=== PATIENT | female | born 1970 | race Caucasian/White ===

== ENCOUNTER 2019-04-12 12:31 | Emergency (ER) | payer SELFPAY ==
[~2019-04-12] VITALS: Ht 160 cm; Wt 79.4 kg
[~2019-04-12 12:31] MED LIST: CYCL10TA7 PO; NAPR-985 PO; TRAM50TA2 PO
[2019-04-12 12:41] VITALS: Ht 160 cm; Wt 79.4 kg
[2019-04-12] MEDS ORDERED: SOD CHLORIDE 0.9% 1,000 ML IV STA (13:26)
[2019-04-12] MEDS ORDERED: ONDANSETRON 4 MG INJ IV STA (13:26)
[2019-04-12] MEDS ORDERED: morphine 4 MG/ML VIAL IV STA (13:26)
[2019-04-12] MEDS ORDERED: KETOROLAC 30 MG INJ IV STA (13:26)
--- NOTE | 2019-04-12 13:52 | ERD ---
ER Documentation Chief Complaint Chief Complaint abdominal pain, vaginal bleeding x 3 days HPI This is a very pleasant 48-year-old female with a history of uterine fibroids who has since discontinued her Ortho Tri-Cyclen therapy in November. She notes approximately 3 days of severe abdominal cramping and heavier vaginal bleeding now going through to tampons today. She states this feels very similar in character and location to prior menorrhagia and dysmenorrhea related to her uterine fibroids. She does not see a regular LIFT TEAM TECHNICIAN. The pain today is 8 out of 10 and cramping. She denies any fevers or chills, no lightheadedness or near syncope. ROS All systems reviewed and are negative except as per history of present illness. Medications Home Meds Active Scripts Ibuprofen* (Motrin*) 800 Mg Tab, 800 MG PO Q6H PRN for PAIN AND OR ELEVATED TEMP, #30 TAB Prov:HEAVEN GREENE MD 04/12/19 Discontinued Scripts Tramadol HCl (Tramadol HCl) 50 Mg Tablet, 50 MG PO Q4 PRN for PAIN, #20 TAB Prov:LIZZETTE ROCA PA-C 09/04/16 Cyclobenzaprine Hcl* (Cyclobenzaprine Hcl*) 10 Mg Tablet, 10 MG PO TID, #15 TAB Prov:LIZZETTE ROCA PA-C 09/04/16 Naproxen* (Naprosyn*) 500 Mg Tablet, 500 MG PO BID PRN for PAIN AND/OR INFLAMMATION, #30 TAB Prov:LIZZETTE ROCA PA-C 09/04/16 Allergies Allergies: Coded Allergies: acetaminophen (Verified Allergy, Unknown, sob, 04/12/19) codeine (Verified Allergy, Unknown, sob, 04/12/19) PMhx/Soc History of Surgery: Yes (BTL) Anesthesia Reaction: No Hx Neurological Disorder: No Hx Respiratory Disorders: No Hx Cardiac Disorders: No Hx Psychiatric Problems: No Hx Miscellaneous Medical Probl: No Hx Alcohol Use: No Hx Substance Use: No Hx Tobacco Use: No (DENIES) Smoking Status: Never smoker FmHx Family History: No diabetes Physical Exam Vitals Vital Signs Date Temp Pulse Resp B/P (MAP) Pulse Ox O2 O2 Flow FiO2 Time Delivery Rate 04/12/19 79 21 118/77 100 Room Air 15:00 (91) 04/12/19 85 17 125/78 100 Room Air 14:30 (94) 04/12/19 98.2 99 19 124/69 100 12:41 (87) Physical Exam General: Slightly uncomfortable Head: Normocephalic, atraumatic. Eyes: Pupils equally reactive, EOM intact ENT: Moist mucous membranes Neck: Supple, no lymphadenopathy Respiratory: Lungs clear bilaterally, no distress Cardiovascular: RRR, no murmurs, rubs, or gallops Abdominal: Soft, mild suprapubic tenderness without rebound or guarding : Deferred MSK: No edema, no unilateral swelling, 5/5 strength Neurologic: Alert and oriented, moving all extremities, normal speech, no focal weakness, no cerebellar signs Skin: No rash Psych: Normal mood Result Diagram: 04/12/19 1338 04/12/19 1338 Results 24 hrs Laboratory Tests Test 04/12/19 13:38 04/12/19 13:49 White Blood Count 6.4 10^3/ul Red Blood Count 4.39 10^6/ul Hemoglobin 8.7 g/dl Hematocrit 30.0 % Mean Corpuscular Volume 68.3 fl Mean Corpuscular Hemoglobin 19.8 pg Mean Corpuscular Hemoglobin Concent 29.0 g/dl Red Cell Distribution Width 17.5 % Platelet Count 325 10^3/UL Mean Platelet Volume 10.3 fl Immature Granulocytes % 0.200 % Neutrophils % 65.0 % Lymphocytes % 25.2 % Monocytes % 7.7 % Eosinophils % 1.4 % Basophils % 0.5 % Nucleated Red Blood Cells % 0.0 /100WBC Immature Granulocytes # 0.010 10^3/ul Neutrophils # 4.2 10^3/ul Lymphocytes # 1.6 10^3/ul Monocytes # 0.5 10^3/ul Eosinophils # 0.1 10^3/ul Basophils # 0.0 10^3/ul Nucleated Red Blood Cells # 0.0 10^3/ul Sodium Level 141 mmol/L Potassium Level 4.0 mmol/L Chloride Level 107 mmol/L Carbon Dioxide Level 26 mmol/L Anion Gap 8 Blood Urea Nitrogen 15 mg/dl Creatinine 0.76 mg/dl Est Glomerular Filtrat Rate mL/min > 60 mL/min Glucose Level 99 mg/dl Calcium Level 9.3 mg/dl POC Beta HCG, Qualitative NEGATIVE Current Medications Medications Dose Sig/Keshav Start Time Status Last (Trade) Ordered Route PRN Stop Time Admin Dose Reason Admin Sodium 1,000 ml @ Q1H STAT 04/12/19 DC 04/12/19 Chloride 1,000 mls/hr IV 13:26 13:45 04/12/19 14:25 Morphine 4 mg ONCE STAT 04/12/19 DC 04/12/19 Sulfate IV 13: 13:54 (morphine) 04/12/19 13:28 Ketorolac 15 mg ONCE STAT 04/12/19 DC 04/12/19 Tromethamine IV 13:26 13:54 (Toradol) 04/12/19 13:28 Ondansetron 4 mg ONCE STAT 04/12/19 DC 04/12/19 HCl (Zofran IV 13: 13:45 Inj) 04/12/19 13:28 Procedures/MDM EKG, MONITORS, & DIAGNOSTIC IMAGING: ultrasound pelvis IMPRESSION: Unremarkable pelvic ultrasound. CT a/p IMPRESSION: 1. No mass, adenopathy or acute inflammatory process. 2. Mild hepatomegaly with diffuse hepatic steatosis. 3. Small amount of free pelvic fluid, likely physiologic. LAB INTERPRETATION: I reviewed the laboratory testing and it shows hemoglobin of 8.7, last known was 11 in 2014 MEDICAL DECISION MAKING: Patient's clinical exam and history are consistent with dysmenorrhea and menorrhagia likely secondary to uterine fibroids. The patient had oral contraceptive therapy that seemed to improve her symptoms last time but she has since discontinued this therapy. She is not following an LIFT TEAM TECHNICIAN regularly. I have very low clinical concern for alternative etiology such as ovarian torsion, acute appendicitis or alternative acute intraabdominal process. This seems to be very consistent to uterine process. Pelvic ultrasound would be appropriate, basic blood work be appropriate to rule out significant anemia. I believe to be reasonable to discuss the case with LIFT TEAM TECHNICIAN as the patient did have improvement with Ortho Tri-Cyclen previously. ER COURSE: * Patient given IV fluids and pain control medications * The patient's ultrasound was unremarkable. Given the patient's initial level of pain a CT of the abdomen pelvis was ordered that is also unremarkable. * At this point I do not believe she is a good candidate for oral contraceptives given no clear fibroid uterus. The patient has a diagnosis of dysmenorrhea and menorrhagia needs to follow-up with outpatient LIFT TEAM TECHNICIAN. Pain is well controlled she has no significant hemorrhage that warrants hospitalization or transfusion. CONSULTATION: None DISPOSITION PLAN: The patient does not have an identifiable emergent medical condition that warrants inpatient hospitalization at this time. The patient is deemed safe for discharge with outpatient follow-up. We discussed follow up with the patient's primary care doctor within 24 to 48 hours as needed. We also discussed return to the emergency room for worsening symptoms or worsening condition. Outpatient referral: LIFT TEAM TECHNICIAN Discharge Medications: Motrin Departure Diagnosis: Primary Impression: Dysmenorrhea Additional Impressions: Menorrhagia Menorrahagia type: premenopausal Qualified Codes: N92.4 - Excessive bleeding in the premenopausal period Abdominal pain Abdominal location: generalized Qualified Codes: R10.84 - Generalized abdominal pain Condition: Stable HEAVEN GREENE MD April 12, 2019 13:52
[2019-04-12 15:00] VITALS: BP 118/77; PULSE 79; RESP 21
[2019-04-12] MEDS ORDERED: IBUP800T48 PO (16:26)
== END 2019-04-12 17:30 | disposition home or self-care (01) ==
LOC: E/R 12:31
DX: N94.6 Dysmenorrhea, unspecified (principal); N92.4 Excessive bleeding in the premenopausal period; R10.2 Pelvic and perineal pain
CPT/HCPCS: 74176; 76856; 80048; 81025; 85025; J1885; J2270; J2405; J7030; 36415; 96374; 96375